=== PATIENT | female | born 1985 | race Caucasian/White ===

== ENCOUNTER 2017-01-10 21:33 | Inpatient (IN) | payer OTHER ==
[~2017-01-10] VITALS: Ht 154.9 cm; Wt 49.4 kg
[~2017-01-10 21:33] MED LIST: NOHOMEMEDS; ZYRTEC10 M2 PO
[2017-01-11 08:21] VITALS: BP 112/63
[2017-01-11 13:55] VITALS: BP 121/60
[2017-01-11 16:45] LABS: HEMATOCRIT 33.1 % (36.0-46.0); MCH 26.4 PG (29.0-34.0); MCV 82.3 FL (83-99); MEAN PLAT.VOLUME 10.9 uM^3 (9.5-12.4); PLATELET COUNT 253 K/uL (156-360); RBC DIS.WIDTH-CV 13.5 % (11.8-14.6); RBC DIS.WIDTH-SD 40.4 % (39-53); RED BLOOD COUNT 4.02 M/uL (3.80-5.20); WHITE BLOOD COUNT 13.1 K/uL (4.1-10.2)
[2017-01-11 17:08] LABS: ANION GAP 7 MEQ/L (2-14); CHLORIDE 103 MEQ/L (99-109); GFR ESTIMATE (CALCULATED) > 59 mL/min/; GLUCOSE 193 mg/dL (70-99); POTASSIUM 4.2 MEQ/L (3.7-5.4); SAMPLE HEMOLYSIS CHECK 0; SAMPLE ICTERIC CHECK 0; SAMPLE LIPEMIA CHECK 0; SODIUM 136 MEQ/L (136-147); UREA NITROGEN (BUN) 9 mg/dL (9-23)
[2017-01-11 20:24] VITALS: BP 99/55
[2017-01-12 00:47] VITALS: BP 107/60
[2017-01-12 04:22] VITALS: BP 101/57
[2017-01-12 07:47] LABS: HEMATOCRIT 29.6 % (36.0-46.0); MCH 25.7 PG (29.0-34.0); MCHC 31.4 G/DL (30.0-36.0); MCV 81.8 FL (83-99); MEAN PLAT.VOLUME 10.9 uM^3 (9.5-12.4); PLATELET COUNT 208 K/uL (156-360); RBC DIS.WIDTH-CV 13.6 % (11.8-14.6); RBC DIS.WIDTH-SD 40.6 % (39-53); RED BLOOD COUNT 3.62 M/uL (3.80-5.20); WHITE BLOOD COUNT 14.2 K/uL (4.1-10.2)
[2017-01-12 08:00] VITALS: BP 99/57
[2017-01-12 08:05] LABS: ANION GAP 7 MEQ/L (2-14); CHLORIDE 105 MEQ/L (99-109); GFR ESTIMATE (CALCULATED) > 59 mL/min/; POTASSIUM 3.9 MEQ/L (3.7-5.4); SAMPLE HEMOLYSIS CHECK 0; SAMPLE ICTERIC CHECK 0; SAMPLE LIPEMIA CHECK 0; SODIUM 138 MEQ/L (136-147); UREA NITROGEN (BUN) 5 mg/dL (9-23)
[2017-01-12 08:10] LABS: GLUCOSE 90 mg/dL (70-99)
[2017-01-12 11:30] VITALS: BP 93/53
[2017-01-12 11:42] LABS: POINT-OF-CARE METER ID UU14208750
[2017-01-12 15:47] VITALS: BP 93/52
[2017-01-12 19:21] VITALS: BP 102/58
[2017-01-13 00:53] VITALS: BP 114/54
[2017-01-13 04:20] VITALS: BP 111/58
[2017-01-13 07:20] VITALS: BP 104/62
[2017-01-13 07:20] LABS: HEMATOCRIT 28.5 % (36.0-46.0); MCHC 32.6 G/DL (30.0-36.0); MCV 82.6 FL (83-99); MEAN PLAT.VOLUME 11.3 uM^3 (9.5-12.4); PLATELET COUNT 196 K/uL (156-360); RBC DIS.WIDTH-CV 13.9 % (11.8-14.6); RBC DIS.WIDTH-SD 41.8 % (39-53); RED BLOOD COUNT 3.45 M/uL (3.80-5.20); WHITE BLOOD COUNT 9.6 K/uL (4.1-10.2)
[2017-01-13 07:46] LABS: ANION GAP 5 MEQ/L (2-14); CHLORIDE 106 MEQ/L (99-109); GFR ESTIMATE (CALCULATED) > 59 mL/min/; GLUCOSE 80 mg/dL (70-99); POTASSIUM 3.9 MEQ/L (3.7-5.4); SAMPLE HEMOLYSIS CHECK 0; SAMPLE ICTERIC CHECK 0; SAMPLE LIPEMIA CHECK 0; SODIUM 139 MEQ/L (136-147); UREA NITROGEN (BUN) 9 mg/dL (9-23)
[2017-01-13] MEDS ORDERED: TRAMADOL HCL50 MG PO (09:36)
== END 2017-01-13 11:11 | disposition home or self-care (01) | DRG 743 ==
LOC: ENRESERV 21:33 → 2SOUTH 01-11 07:37 → ENRESERV 01-11 12:14 → 2EAST 01-11 13:57 → 2SOUTH 01-11 15:53 → 2EAST 01-13 11:11
PROVIDERS: Obstetrics & Gynecology Gynecologic Oncology
DX: N80.1 Endometriosis of ovary (principal); N13.5 Crossing vessel and stricture of ureter without hydronephrosis; N80.3 Endometriosis of pelvic peritoneum; N80.8 Other endometriosis
CPT/HCPCS: 36415; 80048; 82948; 85027; 86900; 86901; 86920; 88304; 88305; J0330; J0690; J1100; J1170; J1650; J1885; J2405; J2550; J2710; J2765; J3010; J7120